=== PATIENT | female | born 1960 ===

== ENCOUNTER 2017-01-20 20:56 | Emergency (ER) | payer SELFPAY ==
[2017-01-20 21:36] VITALS: RESP 18
[2017-01-20] MEDS ORDERED: Oxycodone/Acetaminophen 5/325 mg Tab PO STA (22:31)
[2017-01-20] MEDS ORDERED: Oxycodone/Acetaminophen 5/325 mg Tab ONE (22:35)
--- NOTE | 2017-01-21 00:06 | C.PDOC ---
History Of Present Illness 56 y/o female c/o pain and swelling to the right wrist that began today. Patient reports that she tripped and fell on the side walk. Denies LOC, weakness , or numbness. Time Seen by Provider: 01/20/17 22:13 Chief Complaint (Nursing): Upper Extremity Problem/Injury History Per: Patient History/Exam Limitations: no limitations Onset/Duration Of Symptoms: Hrs Current Symptoms Are (Timing): Still Present Quality: "Pain" Severity: Mild Recent travel outside of the [place]: No Additional History Per: Patient Past Medical History Reviewed: Historical Data, Nursing Documentation, Vital Signs Vital Signs: Last Vital Signs Temp 97.9 F 01/21/17 00:28 Pulse 78 01/21/17 00:28 Resp 18 01/21/17 00:28 BP 126/87 01/21/17 00:28 Pulse Ox 99 01/21/17 00:28 - Medical History PMH: Hypothyroidism Family History: States: Unknown Family Hx - Social History Hx Tobacco Use: No Hx Alcohol Use: No Hx Substance Use: No - Immunization History Hx Influenza Vaccination: No Hx Pneumococcal Vaccination: No Review Of Systems Musculoskeletal: Positive for: Hand Pain (Pain and swelling to the right wrist) Neurological: Negative for: Weakness, Numbness, Other (LOC) Physical Exam - Physical Exam Appears: Non-toxic, No Acute Distress Skin: Warm, Dry Head: Atraumatic, Normacephalic Extremity: Tenderness (Moderate, right wrist), Capillary Refill (<2secs), Deformity (Dorsal deformity of the right wrist), Swelling (Moderate, right wrist ) Pulses: Left Radial: Normal, Right Radial: Normal Neurological/Psych: Oriented x3, Normal Motor, Normal Sensation ED Course And Treatment O2 Sat by Pulse Oximetry: 98 (RA) Pulse Ox Interpretation: Normal - Other Rad Xray right forearm X-Ray: Interpreted by Me, Viewed By Me Interpretation: avulsion fracture of the styloid process of the distal ulna xray right wrist X-Ray: Interpreted by Me, Viewed By Me Interpretation: displaced communited fracture of the right radius, fx of styloid process of the Rt ulna Progress Note: Plans: Xray right forearm, xray right wrist, percocet. Dr. Gregg notified and instructed for the patient to be placed in a sugar-tong splint and to follow up in his office on saturday. Sugar-tong splint placed by denture technician and checked by me. Pt placed in a sling and patient was given instructions for ortho follow up. Disposition Counseled Patient/Family Regarding: Diagnosis, Need For Followup, Rx Given - Disposition Referrals: David Gregg III, MD [Staff Provider] - [facility] [Outside] Disposition: HOME/ ROUTINE Disposition Time: 00:15 Condition: STABLE Additional Instructions: Please Follow up with Dr Gregg- Orthopedist on Saturday call Dr Gregg's office tomorrow to confirm appointment on Saturday Take pain meds s directed Keep arm elevated Return to ER if worse Prescriptions: Ibuprofen [Motrin] 600 mg PO Q6H #30 tab oxyCODONE/Acetaminophen [Percocet 5/325 mg Tab] 1 tab PO QID PRN #10 tab PRN Reason: Pain Instructions: Wrist Fracture in Adults (ED) Forms: [employer] (I[place]ic), Work Excuse Print Language: GUINEAN - Clinical Impression Clinical Impression: Wrist fracture, right - Scribe Statement The provider has reviewed the documentation as recorded by the Scribino martins All medical record entries made by the Scribe were at my direction and personally dictated by me. I have reviewed the chart and agree that the record accurately reflects my personal performance of the history, physical exam, medical decision making, and the department course for this patient. I have also personally directed, reviewed, and agree with the discharge instructions and disposition.
[2017-01-21 00:29] VITALS: BP 126/87; PULSE 78; TEMP 97.9
[2017-01-21 05:23] VITALS: O2SAT 98
--- NOTE | 2017-01-21 09:22 | RAD ---
PROCEDURE: Right Wrist Radiographs. HISTORY: pain, fall, deformity COMPARISON: None. FINDINGS: BONES: Comminuted intra-articular displaced fracture distal radius. No dislocation. No carpal fracture. Minimally displaced ulnar styloid process fracture. JOINTS: Normal carpal alignment maintained. SOFT TISSUES: Normal. OTHER FINDINGS: None. IMPRESSION: Comminuted intra-articular distal radial fracture with mild displacement. Ulnar styloid process fracture.
--- NOTE | 2017-01-22 09:17 | RAD ---
PROCEDURE: Radiographs of the Right Forearm HISTORY: TRIAGE 2 Status post fall. COMPARISON: None available. TECHNIQUE: Frontal and lateral views obtained. FINDINGS: BONES: There is acute slightly displaced and mildly angulated fracture at the distal right radius extending to the articular surface. Otherwise no evidence of acute fracture at the right ulna. JOINT SPACES: No evidence of dislocation. OTHER FINDINGS: [id number] soft tissue swelling. IMPRESSION: Acute slightly displaced and mildly angulated fracture at the distal right radius extending to the articular surface.
== END 2017-01-21 00:29 | disposition home or self-care (01) ==
LOC: C.ER 20:56
DX: S52.571A Other intraarticular fracture of lower end of right radius, initial encounter for closed fracture (principal); S52.611A Displaced fracture of right ulna styloid process, initial encounter for closed fracture; W01.0XXA Fall on same level from slipping, tripping and stumbling without subsequent striking against object, initial encounter; Y92.480 Sidewalk as the place of occurrence of the external cause